=== PATIENT | male | born 1990 | race African-American/Black ===

== ENCOUNTER 2016-04-27 06:52 | Emergency (ER) | payer OTHER ==
[2016-04-27 06:43] LABS: ER CBC TAT 0 Hrs 16 Mins; MEAN CORPUSCULAR HEMOGLOB 29.7 pg (26.0-34.0); MEAN PLATELET VOLUME 9.1 fL (9.2-13.0); NUCLEATED RED BLOOD CELLS 3.5 /100WBC (0-0); PLATELET COUNT 372 10/3/uL (150-400); RBC DISTRIBUTION WIDTH 15.7 % (12.0-16.0); RED CELL COUNT 4.55 10/6/uL (4.7-6.1); WHITE BLOOD CELLS 16.4 10/3/uL (4.5-10.5)
[2016-04-27 06:45] LABS: HEMATOCRIT 36.5 % (40.0-51.0); HEMOGLOBIN 13.5 g/dL (13.6-17.8); LYMPHOCYTES 19.7 %; MEAN CORPUSCULAR VOLUME 80.2 fL (80-100); MONOCYTES 8.2 %; NEUTROPHILS 70.5 %; RETICULOCYTE COUNT 7.3 % (0.5-2.5); RETICULOCYTE COUNT ABSOLUTE 332.1 10/3/uL (20.2-119.8)
[2016-04-27 06:46] LABS: BASOPHILS 0.1 %; BASOPHILS ABSOLUTE 0.02 10/3/uL (0.0-0.16); EOSINOPHILS 0.6 %; EOSINOPHILS ABSOLUTE 0.09 10/3/uL (0.0-0.53); IMMATURE GRANULOCYTES 0.9 %; IMMATURE GRANULOCYTES ABSOLUTE 0.14 10/3/uL (0.0-0.11); LYMPHOCYTES ABSOLUTE 3.18 10/3/uL (0.67-4.30); MANUAL DIFF NO %; MONOCYTES ABSOLUTE 1.32 10/3/uL (0.21-1.20); NEUTROPHILS ABSOLUTE 11.38 10/3/uL (2.02-8.40)
[2016-04-27 06:50] LABS: A/G RATIO 1.1 (0.7-1.9); ALBUMIN 3.9 G/DL (3.5-5.0); BUN (BLOOD UREA NITROGEN) 8 MG/DL (6-23); CALCIUM, SERUM 8.9 MG/DL (8.5-10.4); CHLORIDE, SERUM 103 MMOL/L (96-112); CO2 (CARBON DIOXIDE) 26 MMOL/L (24-34); CREATININE 1.08 MG/DL (0.70-1.30); GFR AFRICAN AMERICAN 108 ML/MIN (>=60); GFR NON AFRICAN AMERICAN 94 ML/MIN (>=60); GLOBULIN 3.6 G/DL (2.5-4.1); GLUCOSE, SERUM 115 MG/DL (60-99); POTASSIUM, SERUM 3.8 MMOL/L (3.5-5.3); SGOT(AST) 18 U/L (5-40); SGPT(ALT) 20 U/L (5-65); SODIUM, SERUM 139 MMOL/L (135-148); TOTAL BILIRUBIN 1.7 MG/DL (0-1.2); TOTAL PROTEIN 7.5 G/DL (6.0-8.5)
[2016-04-27 06:51] LABS: ALKALINE PHOSPHATASE 71 U/L (45-117)
[~2016-04-27 06:52] MED LIST: CEFT5 PO; IBU800 PO; NORCO1 TA1 PO; PCET PO
[2016-04-27 07:15] LABS: ER DIFF TAT 0 Hrs 48 Mins; LYMPHOCYTES 28 %; LYMPHOCYTES ABSOLUTE (CALC) 4.59 10/3/uL (0.67-4.30); MONOCYTES 11 %; PLATELET ESTIMATE ADQ (ADEQUATE); POLYCHROMASIA 1+ (2-5/OIF) (0-1/OIF); SEGMENTED NEUTROPHIL (0) 61 %; TARGET CELLS FEW (3-10/OIF) (0-1/OIF); TOTAL NUCLEATED CELLS 100
[2016-04-27 07:16] LABS: GIANT PLATELET OCC; POIKILOCYTOSIS 1+ (5-10/OIF) (0-5/OIF); TOXIC GRANULATION 1+; VACUOLATED NEUTROPHILES OCC
[2016-04-27 07:18] LABS: SICKLE CELLS(NOT ORD) OCC (0-2/OIF)
[2016-04-27 07:26] LABS: ASCORBIC ACID (UR NOT ORDER) 40 (NEG); BILIRUBIN, URINE NEGATIVE (NEG); ER URINALYSIS TAT 0 Hrs 00 Mins; KETONE, URINE NEGATIVE (NEG); LEUKOCYTE ESTERASE(NOT OR MOD (NEG); NITRITE (URINE) NEG (NEG); WBC (NOT ORDERED) (RFLEX) 30 (0-5)
[2016-04-28 09:27] LABS: CHLAMYDIA TRACH PCR NOT DETECTED (NOT DETEC); GC PCR NOT DETECTED (NOT DETECT); SOURCE: MALE URINE
== END 2016-04-27 08:11 | disposition home or self-care (01) ==
LOC: ER 06:52
PROVIDERS: Specialist
DX: D57.1 Sickle-cell disease without crisis (principal); N39.0 Urinary tract infection, site not specified; F17.200 Nicotine dependence, unspecified, uncomplicated; Z88.5 Allergy status to narcotic agent; Z79.899 Other long term (current) drug therapy
CPT/HCPCS: 71010; 80053; 81001; 85025; 85045; 87086; 87491; 87591; 93005; 96374; 96375; 96376; 99284; J1170; J2405

== ENCOUNTER 2016-08-09 13:02 | Emergency (ER) | payer OTHER ==
[2016-08-09 15:22] LABS: BASOPHILS 0.3 %; BASOPHILS ABSOLUTE 0.04 10/3/uL (0.0-0.16); EOSINOPHILS 0.6 %; EOSINOPHILS ABSOLUTE 0.08 10/3/uL (0.0-0.53); ER CBC TAT 0 Hrs 01 Mins; HEMOGLOBIN 13.4 g/dL (13.6-17.8); IMMATURE GRANULOCYTES 4.9 %; LYMPHOCYTES 19.9 %; LYMPHOCYTES ABSOLUTE 2.87 10/3/uL (0.67-4.30); MEAN CORPUSCULAR HEMOGLOB 28.9 pg (26.0-34.0); MEAN CORPUSCULAR VOLUME 78.8 fL (80-100); MEAN PLATELET VOLUME 8.4 fL (9.2-13.0); MONOCYTES 8.7 %; MONOCYTES ABSOLUTE 1.26 10/3/uL (0.21-1.20); NEUTROPHILS 65.6 %; NEUTROPHILS ABSOLUTE 9.48 10/3/uL (2.02-8.40); NUCLEATED RED BLOOD CELLS 2.1 /100WBC (0-0); PLATELET COUNT 383 10/3/uL (150-400); RBC DISTRIBUTION WIDTH 17.9 % (12.0-16.0); RED CELL COUNT 4.63 10/6/uL (4.7-6.1); WHITE BLOOD CELLS 14.4 10/3/uL (4.5-10.5)
[2016-08-09 15:23] LABS: HEMATOCRIT 35.7 % (40.0-51.0); MANUAL DIFF NO %; MEAN CORPUS HGB CONC 35.7 g/dL (32.0-36.0)
[2016-08-09 15:25] LABS: A/G RATIO 1.2 (0.7-1.9); BUN (BLOOD UREA NITROGEN) 11 MG/DL (6-23); CALCIUM, SERUM 8.5 MG/DL (8.5-10.4); CHLORIDE, SERUM 107 MMOL/L (96-112); CO2 (CARBON DIOXIDE) 27 MMOL/L (24-34); GFR AFRICAN AMERICAN 95 ML/MIN (>=60); GFR NON AFRICAN AMERICAN 82 ML/MIN (>=60); GLOBULIN 3.3 G/DL (2.5-4.1); GLUCOSE, SERUM 94 MG/DL (60-99); POTASSIUM, SERUM 4.1 MMOL/L (3.5-5.3); SGOT(AST) 23 U/L (5-40); SGPT(ALT) 20 U/L (5-65); SODIUM, SERUM 141 MMOL/L (135-148); TOTAL PROTEIN 7.3 G/DL (6.0-8.5)
[2016-08-09 15:26] LABS: ALKALINE PHOSPHATASE 85 U/L (45-117)
[2016-08-09 15:32] LABS: RETICULOCYTE COUNT 8.2 % (0.5-2.9); RETICULOCYTE COUNT ABSOLUTE 386.8 10/3/uL (20.2-119.8)
[2016-08-09 15:47] LABS: BAND NEUTROPHILS 3 %; ER DIFF TAT 0 Hrs 26 Mins; IMMATURE GRANS ABSOLUTE (CALC) 0.14 10/3/uL (0.0-0.11); LYMPHOCYTES 15 %; LYMPHOCYTES ABSOLUTE (CALC) 2.16 10/3/uL (0.67-4.30); METAMYELOCYTES 1 %; MONOCYTES 6 %; MONOCYTES ABSOLUTE (CALC) 0.86 10/3/uL (0.21-1.20); NEUTROPHILS ABSOLUTE (CALC) 11.23 10/3/uL (2.02-8.40); SEGMENTED NEUTROPHIL (0) 75 %; TOTAL NUCLEATED CELLS 100
[2016-08-09 15:48] LABS: ANISOCYTOSIS 1+ (5-10/OIF) (0-5/OIF); HYPOCHROMIA 1+ (3-10/OIF) (0-2/OIF); MACROCYTES 1+ (5-10/OIF) (0-5/OIF); POLYCHROMASIA 1+ (2-5/OIF) (0-1/OIF); SICKLE CELLS(NOT ORD) FEW (3-10/OIF); TARGET CELLS FEW (3-10/OIF) (0-1/OIF)
== END 2016-08-09 17:39 | disposition home or self-care (01) ==
LOC: ER 13:02
PROVIDERS: Emergency Medicine
DX: D57.00 Hb-SS disease with crisis, unspecified (principal); D64.9 Anemia, unspecified; F17.200 Nicotine dependence, unspecified, uncomplicated; Z87.01 Personal history of pneumonia (recurrent); Z88.5 Allergy status to narcotic agent; Z79.899 Other long term (current) drug therapy
CPT/HCPCS: 80053; 85025; 85045; 96374; 96375; 99284; J1170; J1200; J2405